=== PATIENT | female | born 1995 | race Caucasian/White ===

== ENCOUNTER 2017-10-08 08:09 | Day surgery (SDC) | payer OTHER ==
--- NOTE | 2017-10-08 08:39 | PDOC.EVN ---
Event Note - Event Note Event Note: OBGYN Note Phone call with ED Physician at 0825 Reason for call: 29 weeks OB, multip, with known siezures. States "siezures" with each . Her primary OBGYN has recommended neurology eval ([place], [place]) for suspected epilepsy. Here for "siezure". No CTX, no VB, no LOF. Was seen at the [facility] recently for "pelvic pain" with negative workup and sent home from there recently. She just arrived in ED. I have not yet seen her as she is being cleared by ED first. I have reqquested nerology consult. As she has a known SZ HX, imaging of head not needed as not acute problem...unless neurology recommends it. Recommended UTox from ED physician. Recommended OB trinity for date check. After cleared there, may bring up for NST. Likely needs AED med initiateion. Await neurology input.
[2017-10-08] MEDS ORDERED: levETIRAcetam 500 MG TAB PO SCH (08:45)
--- NOTE | 2017-10-08 08:52 | PDOC.EVN ---
Event Note - Event Note Event Note: OBGYN Per ED physician, the neurologist has stated that this is a chronic condition by HX and does not require ED eval by neurology. Truman (spelling?) (Neurology) has recommended starting Keppra at 500mg po BID. We will bring up to L&D after OB trinity done
[2017-10-08 09:03] LABS: #Eosinphils 0.1 thou/uL (0.0-0.7); #Lymphocytes 1.9 thou/uL (1.20-3.40); #Monocytes 0.8 thou/uL (0.11-0.59); #Neutrophils 4.5 thou/uL (1.40-6.50); %Basophils 0.6 % (0.0-1.0); %Eosinophils 1.8 % (0.0-10.0); %Lymphocytes 26.1 % (21.0-51.0); %Monocytes 10.5 % (0.0-10.0); Hemoglobin 11.2 g/dL (12.0-16.0); Mean Corpuscular HGB CONC 34.6 g/dL (32.0-36.0); Mean Corpuscular Hemoglobin 32.4 pg (27.0-31.0); Mean Corpuscular Volume 93.8 fL (78.0-98.0); Mean Platelet Volume 7.5 fL (7.4-10.4); Platelet Count 214 thou/uL (130-400); RBC Distribution Width 11.1 % (11.5-14.5); Red Blood Cell (RBC) Count 3.45 mill/uL (4.20-5.40); White Blood Cell (WBC) Count 7.4 thou/uL (4.8-10.8)
[2017-10-08 09:10] LABS: Bilirubin Negative (Negative); Blood, Urine Negative (Negative); Clarity CLEAR (Clear); Glucose, Urine (Dipstick) Negative (Negative); Leukocyte Negative (Negative); Nitrite Negative (Negative); Protein, Urine (Dipstick) Negative (Neg-Trace)
[2017-10-08] MEDS ORDERED: Ondansetron HCl/PF 4 MG/2 ML Vial IVP PRN (10:49)
--- NOTE | 2017-10-08 10:58 | PDOC.EVN ---
Event Note - Event Note Event Note: OBGYN @1055: HISTORY AND PHYSICAL Full handwritten H&P in chart. Please see that note L&D Triage APU1 EGA: 28 weeks 2 days EDC: 12/28/17 CC: here for seizure this AM. OBGYN in [place] recommended Neurology 22 yo ... HPI: In brief, patient here s/p known seizures, GDM HX. Neurology is aware of patient and recommended Keppra start at 500mg po BID. Needs OBGYN in area. Was being seen in [place], [place]. No evidence contractions, VB, or LOF Past medical HX: asthma as child, HX depression- not on meds Allergies: none OB HX: first was at 36 weeks, second at term Surgeries: Foot surgery for foreign body PHYSICAL: VSSAFEB BP normal at 110s/70s NAD A&O Not postictal Abd soft, [place] No VB monitors: reactive for EGA, no contractions CBC normal in ED CMP pending Amassment and plan: Please see handwritten note in chart: Seizures, not medicated. Neurology recommends Keppra 500mg po BID Needs OBGYN referral ([facility]) CMP ordered Asthma- no acute needs Depression- no acute needs
[2017-10-08 11:13] LABS: ALT (SGPT) 8 U/L (8-55); AST (SGOT) 23 U/L (5-34); Albumin 2.8 g/dL (3.5-5.0); Alkaline Phosphatase 68 U/L (40-150); Anion Gap 13 mmol/L (10-20); BUN (Urea Nitrogen) 7 mg/dL (7.0-18.7); Bilirubin, Total 0.2 mg/dL (0.2-1.2); Calc. Creatinine Clearance 0 mL/min (70-130); Carbon Dioxide 16 mmol/L (22-29); Chloride 108 mmol/L (98-107); Estimated GFR-MDRD Greater than 90; Globulin 3.1 g/dL (2.4-3.5); Glucose 66 mg/dL (70-105); Potassium 4.1 mmol/L (3.5-5.1); Protein, Total 5.9 g/dL (6.0-8.3); Sodium 133 mmol/L (136-145)
[2017-10-08 11:33] VITALS: BMI 23.7
--- NOTE | 2017-10-08 11:44 | ULT ---
OB ULTRASOUND: 10/08/2017 HISTORY: A 29 week . Abdominal pain. Seizure. COMPARISON: None available. FINDINGS: There is a single intrauterine gestation in a cephalic presentation. Cardiac Doppler demonstrates fe rocco heart tones with a heart rate of 147 beats per minute. The placenta is located anteriorly without evidence of placenta previa. There is shadowing in the region of the cervix, which limits ad equate evaluation. However, the cervix measures at least approximately 3.3 cm, based on transabdomin al imaging. There is a normal amount of amniotic fluid, with an amniotic fluid index of 14.6 cm. MEASUREMENTS: Biparietal diameter: 7.62 cm (30 weeks 4 days) Head circumference: 29.93 cm (31 weeks 6 days) Abdominal circumference: 25.58 cm (29 weeks 5 days) Femur length: 5.48 cm (29 weeks) ESTIMATED GESTATIONAL AGE BY ULTRASOUND: 30 weeks 4 days. JOSEPH: 12/13/2017 GESTATIONAL AGE BY LAST MENSTRUAL PERIOD: 28 weeks 3 days. ESTIMATED WEIGHT BY ULTRASOUND: 1448 g (3 lbs 3 oz). This represents the 85th percentile for weight. The cerebellum, the visualized portions of the spine, the four chambered heart, the stomach, th e bilateral kidneys, the urinary bladder, the cord insertion, and the three vessel cord are visualize d and have a normal sonographic appearance. No definite anomalies are visualized. IMPRESSION: 1. Single intrauterine gestation, in cephalic presentation, with heart tones documented. Gest ational age by ultrasound is 30 weeks 4 days with an estimated date of delivery of 12/23/2017. 2. Estimated weight by ultrasound is 1448 g (3 lbs 3 oz). 3. Amniotic fluid index measures 14.6 cm. POS: [facility]
--- NOTE | 2017-10-08 11:58 | PDOC.EVN ---
Event Note - Event Note Event Note: CMP ok I have seen the patient at bedside and discussed [place] with her. Need for neurology and OB outpatient follow up reviewed with her.
[2017-10-08] MEDS ORDERED: Ondansetron HCl/PF 4 MG/2 ML Vial ONE (12:00)
--- NOTE | 2017-10-08 12:10 | PDOC.EVN ---
Event Note - Event Note Event Note: Tylenol just ordered for headache. Sxs likely from the recent seizure activity. BPs normotensive
[2017-10-08] MEDS ORDERED: Acetaminophen 500 MG TAB PO SCH (12:15)
== END 2017-10-08 13:20 | disposition home or self-care (01) ==
LOC: ERS 08:09 → SDC 09:54 → ER/OP 13:20
PROVIDERS: ATTEND Obstetrics & Gynecology
DX: O99.353 Diseases of the nervous system complicating pregnancy, third trimester (principal); O99.513 Diseases of the respiratory system complicating pregnancy, third trimester; O99.343 Other mental disorders complicating pregnancy, third trimester; O24.419 Gestational diabetes mellitus in pregnancy, unspecified control; F32.9 Major depressive disorder, single episode, unspecified; J45.909 Unspecified asthma, uncomplicated; Z3A.28 28 weeks gestation of pregnancy
CPT/HCPCS: 36415; 76805; 80053; 81003; 85025; 96360; J2405

== ENCOUNTER 2017-10-11 00:37 | Emergency (ER) | payer OTHER ==
[2017-10-11] MEDS ORDERED: levETIRAcetam In NaCl (Iso-Os) 1,000 MG in Premix Bag 1 BAG IVPB SCH (01:00)
[2017-10-11 01:28] LABS: #Basophils 0.1 thou/uL (0.0-0.2); #Eosinphils 0.1 thou/uL (0.0-0.7); #Lymphocytes 1.9 thou/uL (1.20-3.40); #Monocytes 0.9 thou/uL (0.11-0.59); #Neutrophils 8.5 thou/uL (1.40-6.50); %Basophils 0.4 % (0.0-1.0); %Eosinophils 0.6 % (0.0-10.0); %Lymphocytes 16.5 % (21.0-51.0); %Monocytes 7.7 % (0.0-10.0); %Neutrophils 74.7 % (42.0-75.0); Hemoglobin 10.5 g/dL (12.0-16.0); Mean Corpuscular HGB CONC 35.1 g/dL (32.0-36.0); Mean Corpuscular Hemoglobin 32.8 pg (27.0-31.0); Mean Corpuscular Volume 93.4 fL (78.0-98.0); Mean Platelet Volume 7.6 fL (7.4-10.4); Platelet Count 214 thou/uL (130-400); RBC Distribution Width 11.3 % (11.5-14.5); Red Blood Cell (RBC) Count 3.22 mill/uL (4.20-5.40); White Blood Cell (WBC) Count 11.4 thou/uL (4.8-10.8)
[2017-10-11 01:48] LABS: ALT (SGPT) 7 U/L (8-55); AST (SGOT) 11 U/L (5-34); Alkaline Phosphatase 55 U/L (40-150); Anion Gap 12 mmol/L (10-20); BUN (Urea Nitrogen) 6 mg/dL (7.0-18.7); Bilirubin, Total 0.3 mg/dL (0.2-1.2); Calc. Creatinine Clearance 0 mL/min (70-130); Calcium 7.8 mg/dL (7.8-10.44); Carbon Dioxide 19 mmol/L (22-29); Chloride 109 mmol/L (98-107); Estimated GFR-MDRD Greater than 90; Globulin 2.7 g/dL (2.4-3.5); Glucose 72 mg/dL (70-105); Potassium 3.5 mmol/L (3.5-5.1); Protein, Total 5.7 g/dL (6.0-8.3); Sodium 136 mmol/L (136-145)
[2017-10-11 02:05] LABS: Bilirubin Negative (Negative); Blood, Urine Negative (Negative); Clarity CLEAR (Clear); Glucose, Urine (Dipstick) Negative (Negative); Leukocyte Negative (Negative); Nitrite Negative (Negative); Protein, Urine (Dipstick) Negative (Neg-Trace); Specific Gravity, Urine 1.026 (1.002-1.036); pH, Urine 6.5 (5.0-9.0)
[2017-10-11] MEDS ORDERED: Mag-Al 1200 mg/1200 mg/30 ML UDCUP ONE (02:50)
== END 2017-10-11 03:28 | disposition home or self-care (01) ==
LOC: ERS 00:37
DX: O99.353 Diseases of the nervous system complicating pregnancy, third trimester (principal); G40.909 Epilepsy, unspecified, not intractable, without status epilepticus; O24.419 Gestational diabetes mellitus in pregnancy, unspecified control; O99.333 Smoking (tobacco) complicating pregnancy, third trimester; F17.210 Nicotine dependence, cigarettes, uncomplicated; O99.343 Other mental disorders complicating pregnancy, third trimester; F41.9 Anxiety disorder, unspecified; Z3A.29 29 weeks gestation of pregnancy; Z79.899 Other long term (current) drug therapy; Z91.14 Patient's other noncompliance with medication regimen
CPT/HCPCS: 36415; 59025; 80053; 81003; 85025; 96365; J1953

== ENCOUNTER 2017-10-28 18:40 | Emergency (ER) | payer OTHER ==
[2017-10-28 19:26] LABS: Bilirubin Small (Negative); Blood, Urine Negative (Negative); Clarity CLEAR (Clear); Glucose, Urine (Dipstick) Negative (Negative); Leukocyte Small (Negative); Nitrite Negative (Negative); Protein, Urine (Dipstick) Trace mg/dL (Neg-Trace); Specific Gravity, Urine 1.027 (1.002-1.036)
[2017-10-28 19:28] LABS: Bacteria/HPF 1+ HPF (None Seen); Hyaline Casts/LPF 0-3 HYALINE CAST LPF (0-3 Hyaline); Pathc Cast-AUWi Flag 0.43 (0-2.49); RBC/HPF 0-3 HPF (0-3)
[2017-10-28 19:37] LABS: ALT (SGPT) 11 U/L (8-55); AST (SGOT) 16 U/L (5-34); Albumin 3.4 g/dL (3.5-5.0); Alkaline Phosphatase 88 U/L (40-150); Anion Gap 13 mmol/L (10-20); BUN (Urea Nitrogen) 9 mg/dL (7.0-18.7); Bilirubin, Total 0.3 mg/dL (0.2-1.2); Calc. Creatinine Clearance 0 mL/min (70-130); Calcium 8.6 mg/dL (7.8-10.44); Carbon Dioxide 20 mmol/L (22-29); Chloride 106 mmol/L (98-107); Estimated GFR-MDRD Greater than 90; Globulin 3.1 g/dL (2.4-3.5); Glucose 82 mg/dL (70-105); Potassium 3.5 mmol/L (3.5-5.1); Protein, Total 6.5 g/dL (6.0-8.3); Sodium 135 mmol/L (136-145)
[2017-10-28 19:56] LABS: #Eosinphils 0.1 thou/uL (0.0-0.7); #Lymphocytes 1.8 thou/uL (1.20-3.40); #Monocytes 0.7 thou/uL (0.11-0.59); #Neutrophils 4.6 thou/uL (1.40-6.50); %Basophils 0.3 % (0.0-1.0); %Lymphocytes 24.6 % (21.0-51.0); %Monocytes 9.4 % (0.0-10.0); %Neutrophils 64.7 % (42.0-75.0); Hemoglobin 11.5 g/dL (12.0-16.0); Mean Corpuscular HGB CONC 35.4 g/dL (32.0-36.0); Mean Corpuscular Hemoglobin 32.1 pg (27.0-31.0); Mean Corpuscular Volume 90.8 fL (78.0-98.0); Mean Platelet Volume 7.6 fL (7.4-10.4); Platelet Count 246 thou/uL (130-400); RBC Distribution Width 11.4 % (11.5-14.5); Red Blood Cell (RBC) Count 3.59 mill/uL (4.20-5.40); White Blood Cell (WBC) Count 7.2 thou/uL (4.8-10.8)
[2017-10-28] MEDS ORDERED: Ondansetron HCl/PF 4 MG/2 ML Vial ONE (20:02)
[2017-10-28] MEDS ORDERED: Mag-Al 1200 mg/1200 mg/30 ML UDCUP ONE (20:45)
== END 2017-10-28 20:54 | disposition home or self-care (01) ==
LOC: ERS 18:40
DX: O99.89 Other specified diseases and conditions complicating pregnancy, childbirth and the puerperium (principal); R56.9 Unspecified convulsions; O99.333 Smoking (tobacco) complicating pregnancy, third trimester; F17.210 Nicotine dependence, cigarettes, uncomplicated; Z79.899 Other long term (current) drug therapy; Z3A.31 31 weeks gestation of pregnancy
CPT/HCPCS: 80053; 81003; 81015; 84146; 85025; 87086; 96374; J2405

== ENCOUNTER 2017-10-30 22:36 | Day surgery (SDC) | payer OTHER ==
[2017-10-30 22:59] VITALS: BMI 24.4
[2017-10-30] MEDS ORDERED: Mineral Oil ENEMA PR SCH (23:45)
[2017-10-30] MEDS ORDERED: Fleet Enema 133 ML BOT PR SCH (23:45)
[2017-10-31] MEDS ORDERED: Ondansetron ODT 8 MG TAB SL PRN (00:17)
[2017-10-31 00:52] LABS: Bilirubin Negative (Negative); Blood, Urine Negative (Negative); Clarity CLEAR (Clear); Glucose, Urine (Dipstick) Negative (Negative); Leukocyte Negative (Negative); Nitrite Negative (Negative); Protein, Urine (Dipstick) Negative (Neg-Trace); Specific Gravity, Urine 1.023 (1.002-1.036)
[2017-10-31 00:55] LABS: Bacteria/HPF None Seen HPF (None Seen); Hyaline Casts/LPF 0-3 HYALINE CAST LPF (0-3 Hyaline); Pathc Cast-AUWi Flag 0.43 (0-2.49); RBC/HPF 0-3 HPF (0-3); Squamous Epithelial 0-3 HPF (0-3); WBC/HPF 0-3 HPF (0-3)
--- NOTE | 2017-10-31 06:41 | PRG ---
DATE OF SERVICE: 10/30/2017 PRIMARY OB: Out of town. CHIEF COMPLAINT: Pelvic pressure. HISTORY OF PRESENT ILLNESS: The patient is a 22-year-old G3, P2 female with an intrauterine pregnanc y at 31 weeks and 5 days who is presenting to Labor and Delivery with a 1 day history of pelvic press ure. The patient reports that she has pain with movement and activity. She reports she had intercou rse earlier this morning prior to onset of symptoms. She denies any vaginal bleeding, though reports that she has had a couple episodes of some clear thick discharge. The patient reports that she has been having nausea and vomiting with this , bad heartburn. She also reports constipation wi th her last bowel movement about 2 weeks ago. The patient also reports urinary urgency and frequency . The patient does have a history of a . Upon further questioning, the was induc ed at 34 weeks for preeclampsia with severe features. The patient denies fever, headache, chest pain . She does have some shortness of breath at baseline with this . Reports some nausea and v omiting with this and bad heartburn. She denies diarrhea or constipation. Denies any new rashes. Denies hip problems or knee problems or muscle weakness. Denies vaginal bleeding, reports a n increased discharge today and reports urinary urgency and frequency. PAST MEDICAL HISTORY: Recently is an unknown seizure disorder of unknown etiology, gestational diabe mario, anxiety, a history of asthma as a child. PAST SURGICAL HISTORY: The patient had a foot surgery. ALLERGIES: No known drug allergies. CURRENT MEDICATIONS: The patient reports she takes Keppra 1000 mg twice a day, vitamins, Bu Spar, Zofran, folic acid, metformin 500 mg twice a day and iron. SOCIAL HISTORY: Denies drug, alcohol or tobacco use. OB LABS: Unavailable at time of dictation. REVIEW OF SYSTEMS: The patient denies fever or fall. She does report headaches at times. Reports b aseline shortness of breath. Review of systems per HPI. PHYSICAL EXAMINATION: VITAL SIGNS: Blood pressure 105/56, heart rate of 85, respiratory rate of 18, temperature 98.2. GENERAL: She appears to be in no acute distress. She is alert and oriented, cooperative and pleasan t to interact with. HEENT: Head is normocephalic, atraumatic. CHEST: Clear to auscultation bilaterally. HEART: Regular rate and rhythm. ABDOMEN: Soft, gravid. She does have some tenderness with deviation of the uterus on the left side more than the right. She also has some lower pelvic tenderness to palpation. EXTREMITIES: Nontender, nonedematous. PELVIC: Vulva is without mass lesions or erythema. Vagina is moist without any discharge. Cervix i s visibly closed. On digital exam, her cervix is long and closed. Of note, she did have a lot of te nderness to palpation of the labia and vaginal ledbetter consistent with her chief complaint. heart tracing performed for pelvic pressure with NST, baseline is noted to be in the 140s with moderate long-term variability, positive 15 x 15 accelerations, no decelerations. There is some irri tability seen on the monitor, but not felt by the patient. A urinalysis was performed which was negative for protein, glucose, for ketones, for blood, for nitri mario or leukocyte esterase or bacteria. During her stay, the patient was given a soapsuds enema which helped her to have a bowel movement. Afterwards the patient reports she felt a lot better and that pressure in her pelvis is much improved. ASSESSMENT AND PLAN: The patient is a 22-year-old female with an intrauterine at 31 weeks and 5 days, followed by outside provider in [place], [place], who presented for pelvic pressure. The pa tient has a chronic problem with constipation and symptoms improved after having an enema induced bow el movement here in the Labor and Delivery. The patient also has some musculoskeletal pains that may be contributing to her discomfort. There is no evidence of labor. Fetus has a category 1 tracing a nd reactive NST. There is no evidence of urinary tract infection.
== END 2017-10-31 01:30 | disposition home or self-care (01) ==
LOC: L&D/OP 22:36
PROVIDERS: ATTEND Obstetrics & Gynecology
DX: O99.89 Other specified diseases and conditions complicating pregnancy, childbirth and the puerperium (principal); R10.2 Pelvic and perineal pain; Z79.84 Long term (current) use of oral hypoglycemic drugs; Z79.899 Other long term (current) drug therapy; Z3A.31 31 weeks gestation of pregnancy
CPT/HCPCS: 81001; 99283

== ENCOUNTER 2018-01-10 22:46 | Emergency (ER) | payer OTHER ==
--- NOTE | 2018-01-11 | RAD ---
PORTABLE UPRIGHT FRONTAL CHEST RADIOGRAPH 01/10/18 COMPARISON: None. HISTORY: Seizure. FINDINGS: Lungs are clear. Heart and mediastinal contours appear grossly unremarkable. IMPRESSION: No acute findings. POS: [facility]
[2018-01-11 00:02] LABS: #Basophils 0.1 thou/uL (0.0-0.2); #Eosinphils 0.4 thou/uL (0.0-0.7); #Lymphocytes 2.6 thou/uL (1.20-3.40); #Monocytes 0.4 thou/uL (0.11-0.59); #Neutrophils 2.4 thou/uL (1.40-6.50); %Basophils 1.1 % (0.0-1.0); %Eosinophils 7.2 % (0.0-10.0); %Lymphocytes 44.2 % (21.0-51.0); %Monocytes 6.7 % (0.0-10.0); %Neutrophils 40.9 % (42.0-75.0); Hemoglobin 12.8 g/dL (12.0-16.0); Mean Corpuscular HGB CONC 33.4 g/dL (32.0-36.0); Mean Corpuscular Hemoglobin 29.3 pg (27.0-31.0); Mean Corpuscular Volume 87.9 fL (78.0-98.0); Mean Platelet Volume 7.5 fL (7.4-10.4); Platelet Count 344 thou/uL (130-400); RBC Distribution Width 13.1 % (11.5-14.5); Red Blood Cell (RBC) Count 4.38 mill/uL (4.20-5.40); White Blood Cell (WBC) Count 5.9 thou/uL (4.8-10.8)
[2018-01-11 00:24] LABS: ALT (SGPT) 14 U/L (8-55); AST (SGOT) 26 U/L (5-34); Albumin 3.9 g/dL (3.5-5.0); Alkaline Phosphatase 83 U/L (40-150); Anion Gap 16 mmol/L (10-20); BUN (Urea Nitrogen) 10 mg/dL (7.0-18.7); Bilirubin, Total Less than 0.2 mg/dL (0.2-1.2); CK (CPK) 373 U/L (29-168); Calc. Creatinine Clearance 0 mL/min (70-130); Calcium 9.5 mg/dL (7.8-10.44); Carbon Dioxide 20 mmol/L (22-29); Chloride 111 mmol/L (98-107); Estimated GFR-MDRD Greater than 90; Globulin 3.5 g/dL (2.4-3.5); Glucose 83 mg/dL (70-105); Potassium 3.8 mmol/L (3.5-5.1); Protein, Total 7.4 g/dL (6.0-8.3); Sodium 143 mmol/L (136-145)
[2018-01-11 00:29] LABS: Bilirubin Negative (Negative); Blood, Urine Negative (Negative); Clarity CLEAR (Clear); Glucose, Urine (Dipstick) Negative (Negative); Leukocyte Negative (Negative); Nitrite Negative (Negative); Protein, Urine (Dipstick) Negative (Neg-Trace); Urobilinogen 0.2 mg/dL (0.2-1.0); pH, Urine 6.5 (5.0-9.0)
[2018-01-11] MEDS ORDERED: levETIRAcetam 500 MG TAB PO SCH (00:30)
[2018-01-11 00:31] LABS: Acetaminophen Less than 6.0 mcg/mL (10.0-30.0); Alcohol 164 mg/dL (Less than 10); Magnesium 2.6 mg/dL (1.6-2.6); Salicylate Less than 8.0 mg/dL (15.0-30.0)
[2018-01-11 00:36] LABS: Specific Gravity, Urine 1.002 (1.002-1.036)
[2018-01-11 00:51] LABS: Amphetamine Not Detected (NotDetected); Barbiturates Screen Not Detected (NotDetected); Benzodiazepine Screen Not Detected (NotDetected); Cocaine Metabolite Screen Not Detected (NotDetected); Medtox Reader # READER 4; Methadone Not Detected (NotDetected); Methamphetamine Not Detected (NotDetected); Opiate Screen Not Detected (NotDetected); Oxycodone Screen Not Detected (NotDetected); Phencyclidine (PCP) Not Detected (NotDetected); THC/Cannabinoid Screen Not Detected (NotDetected); Tricyclic Screen Not Detected (NotDetected)
[2018-01-11 00:52] LABS: Medtox Control Line Valid? VALID (VALID)
== END 2018-01-11 01:14 | disposition home or self-care (01) ==
LOC: ERS 22:46
DX: R56.9 Unspecified convulsions (principal); F10.129 Alcohol abuse with intoxication, unspecified; F41.9 Anxiety disorder, unspecified; F17.210 Nicotine dependence, cigarettes, uncomplicated; Z79.899 Other long term (current) drug therapy
CPT/HCPCS: 36415; 71045; 80053; 80306; 80307; 81003; 82550; 83605; 83735; 85025; 93005

== ENCOUNTER 2018-08-05 18:10 | Day surgery (SDC) | payer OTHER ==
[2018-08-05 18:51] VITALS: BP 108/57; TEMP 98.6; BMI 24.7
[2018-08-05 19:39] LABS: Bilirubin Negative (Negative); Blood, Urine Small (Negative); Clarity CLEAR (Clear); Glucose, Urine (Dipstick) Negative (Negative); Leukocyte Negative (Negative); Nitrite Negative (Negative); Protein, Urine (Dipstick) Negative (Neg-Trace); Specific Gravity, Urine 1.012 (1.002-1.036)
[2018-08-05 19:41] LABS: Bacteria/HPF None Seen HPF (None Seen); Hyaline Casts/LPF 0-3 HYALINE CAST LPF (0-3 Hyaline); Pathc Cast-AUWi Flag 0.54 (0-2.49); Squamous Epithelial 0-3 HPF (0-3); WBC/HPF None Seen HPF (0-3)
--- NOTE | 2018-08-06 02:41 | SS ---
DATE OF ADMISSION: 08/05/2018 DATE OF DISCHARGE: 08/05/2018 EVALUATING PHYSICIAN: Mickey Prabhakar MD CHIEF COMPLAINT: Transfer from [facility]. HISTORY OF PRESENT ILLNESS: Ms. Del Toro is a 23-year-old white, G4, P3-0-0-3 with an unknown estimated date of confinement, who presented to [facility] this evening complaining of spotting since last evening and suspected uterine contraction. She denies ruptured membranes. She was evaluated at [facility], was told her cervix was closed and she had an ultrasound there, consistent with 27 weeks. She was transferred here for further evaluation. PAST OBSTETRICAL HISTORY: Includes three vaginal deliveries, all at term. PAST MEDICAL HISTORY: Includes seizure disorder, the last was several weeks ago. PAST SURGICAL HISTORY: None. CURRENT MEDICATIONS: Keppra 1000 mg b.i.d. ALLERGIES: NO KNOWN ALLERGIES. SOCIAL HISTORY: Denies tobacco, alcohol, or drug use. FAMILY HISTORY: Unremarkable. REVIEW OF SYSTEMS: She denies nausea, vomiting, fever, chills, ruptured membranes, or decreased movement. PHYSICAL EXAMINATION: VITAL SIGNS: In triage, blood pressure 108/57 and pulse 86. GENERAL: She is in no acute distress. ABDOMEN: Soft and nontender. PELVIS: Shows the cervix to be closed. There is no blood in the vault. LABORATORY DATA: Laboratories done at [facility]; white count 7.6, hemoglobin and hematocrit are 12.0 and 36.8, and platelet count is 277,000. Chemistry shows sodium of 136, potassium of 3.8, and a creatinine of 0.5. The total bilirubin is 0.2, and AST and ALT of 16 and 15 respectively. Blood type is A positive. Ultrasound done at [facility] shows biometry consistent with 27 weeks. There is no previa or low-lying placenta seen. The fetus is vertex, and the RAFAEL is 8.9. Laboratory done here tonight is urinalysis, which shows a specific gravity of 1.012. Her urine is clear and yellow, negative for protein, negative for glucose, negative for ketones, with only a small amount of blood with negative nitrites. Negative leukocyte esterase. Microscopic shows 4 to 6 rbc's, no wbc's, 0 to 3 epithelials, and no bacteria. Vaginitis screen is negative for Apoorva Gardnerella or Trichomonas. ASSESSMENT: 1. Twenty-seven and one week intrauterine with no care thus far. 2. No evidence of labor. PLAN: The patient will be discharged to home. The patient states that she has an appointment at [facility] in the morning to initiate care there. She was given complete precautions. Job ID: [id number]
== END 2018-08-05 21:50 | disposition home or self-care (01) ==
LOC: L&D/OP 18:10
PROVIDERS: ATTEND Family Medicine
DX: O26.852 Spotting complicating pregnancy, second trimester (principal); O99.352 Diseases of the nervous system complicating pregnancy, second trimester; G40.909 Epilepsy, unspecified, not intractable, without status epilepticus; Z3A.27 27 weeks gestation of pregnancy; Z79.899 Other long term (current) drug therapy
CPT/HCPCS: 81003; 81015; 87480; 87510; 87660; A4353

== ENCOUNTER 2018-08-26 18:41 | Day surgery (SDC) | payer OTHER ==
[2018-08-26 19:14] VITALS: BP 97/53; TEMP 98.4; BMI 26.4
[2018-08-26] MEDS: Lactated Ringer's 1,000 ML IV SCH ×2 (20:01→21:16)
[2018-08-26] MEDS: diphenhydrAMINE 50 MG/ML VIAL IVP PRN ×2 (20:01→21:14)
[2018-08-26] MEDS: Metoclopramide HCl 10 MG/2 ML VIAL IVP PRN ×4 (20:04→21:53)
--- NOTE | 2018-08-26 23:35 | PRG ---
DATE OF SERVICE: 08/26/2018 PRIMARY OB: Aj Waite MD CHIEF COMPLAINT: Headache. HISTORY OF PRESENT ILLNESS: The patient is a 23-year-old G4, P3, female with an intrauterine at 35 weeks' gestation, who was followed by Dr. Aj Waite. The patient reports that she has had a severe headache all day long today that has not resolved with 4 doses of Tylenol. The patient reports that she is having nausea, extreme light sensitivity, and vomited down in the emergency room. She denies any prior history of headache like this. The patient does have a history of seizures with her last seizure being about a month ago. The patient denies any recent illness, fever, fall, chest pain, shortness of breath, diarrhea, constipation, hip problems, knee problems, muscle weakness, vaginal bleeding, leakage of fluid, and urinary urgency or frequency. PAST MEDICAL HISTORY: Seizure disorder. PAST SURGICAL HISTORY: None. CURRENT MEDICATIONS: Keppra 1000 mg b.i.d. ALLERGIES: NO KNOWN DRUG ALLERGIES. SOCIAL HISTORY: The patient reports tobacco use, 1 pack per week. Denies alcohol or drug use. REVIEW OF SYSTEMS: Per HPI. OB LABS: Unavailable at the time of dictation. PHYSICAL EXAMINATION: VITAL SIGNS: Blood pressure is 108/57, heart rate of 86, respiratory rate of 16, saturating 99% on room air, and temperature 98.8. GENERAL: On initial exam, the patient is hiding under the blanket, staying away from the light. She is alert, oriented, cooperative, and pleasant to interact with. HEENT: Head is normocephalic, atraumatic. LUNGS: Clear to auscultation bilaterally. HEART: Has regular rate and rhythm. ABDOMEN: Gravid and soft. EXTREMITIES: Nontender, nonedematous. heart tracing performed and noted to have a baseline in the 130s with moderate long-term variability, positive accelerations, 15 x 15 accelerations, no decelerations. Tocometer showing no contractions. After 3 doses of Reglan q.30 minutes, 10 mg p.o. q.30 minutes x3 and 2 doses of Benadryl q.1 hour 25 mg x2, the patient reports her headache has come to zero. She has also been given 1.5 L of IV fluids. ASSESSMENT AND PLAN: The patient is a 23-year-old G4, P3, female with an intrauterine at 31 weeks and 5 days, who has been diagnosed with migraine headache, resolved with Reglan and Benadryl and IV fluids. The patient reports that she is feeling much better and apart from being sleepy. She is happy with the results and will be discharged to home. Her fetus has a reactive NST and category 1 tracing. The patient has an appointment on for anatomy scan. Job ID: [id number]
== END 2018-08-26 22:05 | disposition home or self-care (01) ==
LOC: L&D/OP 18:41
PROVIDERS: ATTEND Family Medicine
DX: O99.353 Diseases of the nervous system complicating pregnancy, third trimester (principal); G43.909 Migraine, unspecified, not intractable, without status migrainosus; G40.909 Epilepsy, unspecified, not intractable, without status epilepticus; O99.333 Smoking (tobacco) complicating pregnancy, third trimester; F17.290 Nicotine dependence, other tobacco product, uncomplicated; Z3A.31 31 weeks gestation of pregnancy; Z79.899 Other long term (current) drug therapy
CPT/HCPCS: 96360; 96361; 96375; 99282; J1200; J2765

== ENCOUNTER 2018-08-28 07:06 | Outpatient (CLI) | payer OTHER ==
--- NOTE | 2018-08-28 08:12 | ULT ---
EXAM: OB ultrasound COMPARISON: None HISTORY: female. Evaluate size, dates, and anatomy. TECHNIQUE: Multiplanar grayscale and color Doppler transabdominal sonographic images are obtained. FINDINGS: There is a single intrauterine gestation in cephalic presentation. Cardiac Doppler demonstr ates heart tones with a heart rate of 135 beats per minute. The placenta is located anteriorly and to the maternal left without evidence of placenta previa. Amniotic fluid index is at t he lower limits of normal measuring 8.09 cm. The cervical length based on transabdominal imaging measures 3.3 centimeters. biometry measurements: BPD 7.74 cm -- 31 weeks 1 day HC 28.55 cm -- 31 weeks 3 days AC 26.92 cm -- 31 weeks 1 day FL 5.69 cm -- 29 weeks 6 days The estimated gestational age by ultrasound is 31 weeks with an JOSEPH on10/30/2018. Gestational age by t he last menstrual period is 10/30/2018. The estimated weight by ultrasound is 1620 g (3 pounds, 9 ounces). This represents 28 percentil e for weight. A 4 chambered heart is visualized. The cerebellum, visualized portions of the spine, kidneys, a nd urinary bladder demonstrate a normal sonographic appearance. Cord insertion is not well seen due to positioning. Three-vessel cord is visualized. No anomalies are seen. IMPRESSION: 1. Single intrauterine gestation in cephalic presentation with heart tones documented. Estimat ed gestational age by ultrasound is 31 weeks with JOSEPH on 10/30/2018. 2. Estimated weight is 1620 g (3 pounds, 9 ounces). 3. Amniotic fluid index is diminished and at the lower limits of normal measuring 8.09 cm.
== END 2018-08-28 07:07 | disposition home or self-care (01) ==
LOC: BICULT 07:06
PROVIDERS: ATTEND Family Medicine
DX: O09.893 Supervision of other high risk pregnancies, third trimester (principal); Z3A.31 31 weeks gestation of pregnancy
CPT/HCPCS: 76805

== ENCOUNTER 2018-09-21 21:27 | Day surgery (SDC) | payer OTHER ==
[2018-09-21 21:53] VITALS: BP 106/63; TEMP 98.3; BMI 25.4
--- NOTE | 2018-09-22 02:21 | SS ---
DATE OF ADMISSION: 09/21/2018 DATE OF DISCHARGE: 09/22/2018 REGULAR PHYSICIAN: Aj Waite MD. EVALUATING PHYSICIAN: Mickey Prabhakar MD CHIEF COMPLAINT: Fall at home. HISTORY OF PRESENT ILLNESS: Ms. Del Toro is a 23-year-old white G4, P3, with an estimated date of confinement of 10/30/2018, who presents complaining of fall at home, where she slipped in the shower and fell back onto her bottom. She denies direct abdominal contact. She denies vaginal bleeding or ruptured membranes since the event. She states that it occurred at approximately 8:30 pm. Her care has been with Dr. Waite and has been reportedly uncomplicated. PAST MEDICAL HISTORY: Seizure disorder. PAST SURGICAL HISTORY: None. CURRENT MEDICATIONS: vitamins and Keppra 1000 mg b.i.d. ALLERGIES: NO KNOWN ALLERGIES. SOCIAL HISTORY: Denies tobacco, alcohol, or drug use. FAMILY HISTORY: Unremarkable. REVIEW OF SYSTEMS: Denies nausea, vomiting, fever, chills, ruptured membranes, or vaginal bleeding. PHYSICAL EXAMINATION: VITAL SIGNS: Stable and she is afebrile. GENERAL: She is in no acute distress. ABDOMEN: Soft, nontender, and gravid. There is no guarding or rebound. PELVIC: Deferred. heart rate tracing is stable. No uterine contractions are seen. The patient was monitored over approximately 4-hour period of time and there were no evidence of decelerations or contractions. ASSESSMENT: 1. 34-1/2 week intrauterine . 2. Status post fall. 3. No evidence of abruption or distress over her period of observation tonight. PLAN: The patient will be dismissed to home. She was given complete precautions and was told to return to the hospital should she experience contractions, vaginal bleeding, or decreased movement. She voiced understanding of her instructions and she was given a work release, so that she could rest tomorrow rather than going to work. She will follow up for her next scheduled visit with Dr. Waite this week. Job ID: [id number] MTDD
== END 2018-09-22 01:12 | disposition home or self-care (01) ==
LOC: L&D/OP 21:27
PROVIDERS: ATTEND Family Medicine
DX: Z04.3 Encounter for examination and observation following other accident (principal); O99.353 Diseases of the nervous system complicating pregnancy, third trimester; G40.909 Epilepsy, unspecified, not intractable, without status epilepticus; Z3A.34 34 weeks gestation of pregnancy; Z79.899 Other long term (current) drug therapy; W18.2XXA Fall in (into) shower or empty bathtub, initial encounter; Y92.002 Bathroom of unspecified non-institutional (private) residence as the place of occurrence of the external cause
CPT/HCPCS: 99282

== ENCOUNTER 2018-10-02 19:38 | Inpatient (IN) | payer OTHER ==
[2018-10-02 20:17] VITALS: BMI 25.7
--- NOTE | 2018-10-02 20:30 | PDOC.LDHP ---
Labor and Delivery H&P HPI: Patient with known SZ disorder on Keppra 100omg po BID, just seen within last 24 hrs with SZ at home. Patient of Dr Waite Time: 829 Patient is a 23 yo at [address] Waite at [facility], here for CTX every 3-5 minutes. No LOF, no VB, good FM. Was 2cm yesterday in L&D. Review of Systems: pos for SZ HX on meds Current gestational age (weeks): 36 Due date: 10/30/18 Dating criteria: last menstrual period Grav: 4 Para: 3 OB History Details: All SVDs Current complications: other (SZ disorder) Abnormal US findings: No Current medications: pre- vitamins, other (Keppra 1000mg po BID) Allergies/Adverse Reactions: Allergies Allergy/AdvReac Type Severity Reaction Status Date / Time No Known Allergies Allergy Verified 10/01/18 11:38 Social history: none - Physical Exam Vital signs reviewed and normal: yes Abnormal vital signs: Pulse 110-120 General: NAD Heart: RRR Lungs: CTAB Abdomen: gravid Extremeties: no edema FHT: category 1 Mitchell contractions every: every 3-5 - Vaginal Exam cm dilated: 4 Effacement: 50% Station: -1 - Assessment L&D Assessment: labor HX of SZ disorder with recent seizure, on meds, unknown GBS - Plan Plan: admit to L&D, GBS antibiotic prophylaxis (Due to unknown result and EGA), informed consent obtained, other (Order UDS for maternal tachycardia; celestone as under [address] waite to be notified of admission)
[2018-10-02] MEDS ORDERED: Butorphanol Tartrate 1 MG/ML VIAL SLOW IVP PRN (20:33)
[2018-10-02] MEDS ORDERED: Lidocaine 1% (PF) 30 ML VIAL SC PRN (20:33)
[2018-10-02] MEDS ORDERED: HYDROcodone/Acetaminophen 5/325 mg Tablet PO PRN ×2 (20:33)
[2018-10-02] MEDS ORDERED: hydrALAZINE 20 MG/ML VIAL SLOW IVP PRN (20:33)
[2018-10-02] MEDS ORDERED: NS / Oxytocin 40 units/1000ml 1,000 ML IV PRN (20:33)
[2018-10-02] MEDS ORDERED: Ibuprofen 800 MG TAB PO PRN (20:33)
[2018-10-02] MEDS ORDERED: Ondansetron PF 4 MG/2 ML Vial IVP PRN (20:33)
[2018-10-02] MEDS ORDERED: Promethazine HCl 25 MG/ML VIAL IM PRN (20:33)
--- NOTE | 2018-10-02 20:44 | PDOC.EVN ---
Event Note - Event Note Event Note: Cancelled steroids...she has received them already
[2018-10-02] MEDS ORDERED: Penicillin G Potassium 5 MILL.UNITS in Sodium Chloride 0.9% 100 ML IVPB SCH (20:45)
[2018-10-02] MEDS ORDERED: Lactated Ringer's 1,000 ML IV SCH (20:45)
[2018-10-02] MEDS ORDERED: Betamet Acet/Betamet Na Ph 30 MG/5 ML VIAL IM SCH (21:00)
[2018-10-02] MEDS ORDERED: Penicillin G 2.5 MILL.units 2.5 MILL.UNITS in Premix Bag 1 BAG IVPB SCH (21:00)
[2018-10-02] MEDS ORDERED: Azithromycin 500 MG in Sodium Chloride 0.9% 250 ML 250 ML IVPB SCH (21:15)
[2018-10-02] MEDS ORDERED: Ampicillin 2 GM in Sodium Chloride 0.9% 100 ML IVPB SCH (21:15)
[2018-10-02 21:48] LABS: Hemoglobin 10.9 g/dL (12.0-16.0); Mean Corpuscular HGB CONC 34.2 g/dL (32.0-36.0); Mean Corpuscular Hemoglobin 29.5 pg (27.0-31.0); Mean Corpuscular Volume 86.2 fL (78.0-98.0); Mean Platelet Volume 8.5 fL (7.4-10.4); Platelet Count 287 thou/uL (130-400); RBC Distribution Width 12.8 % (11.5-14.5); Red Blood Cell (RBC) Count 3.69 mill/uL (4.20-5.40); White Blood Cell (WBC) Count 15.5 thou/uL (4.8-10.8)
[2018-10-02] MEDS ORDERED: AMPicillin 1 GM in Sodium Chloride 0.9% 100 ML IVPB SCH (22:00)
[2018-10-02 22:13] LABS: Syphilis Antibody Nonreactive (Nonreactive); Syphilis Antibody Index 0.04 S/CO (<1.00 Non-Reactive)
[2018-10-02] MEDS ORDERED: Fentanyl 4 mcg/Bup 0.1% Cadd 100 ML ONE (22:17)
[2018-10-02 22:57] LABS: HBSAg Index 0.26 S/CO (0-0.99); HIV (1/2) Antibody/Antigen Non-Reactive (NonReactive); HIV 1/2 INDEX 0.14 S/CO (<1.00); Hep B Surf Ag Non-Reactive S/CO (NonReactive)
[2018-10-02] MEDS ORDERED: Calcium Carbonate 500 MG ChewTAB PO SCH (23:30)
[2018-10-03] MEDS ORDERED: Naloxone HCl 0.4 mg/ml Vial IVP PRN ×2 (03:12)
[2018-10-03] MEDS ORDERED: Acetaminophen 325 MG TAB PO PRN (03:12)
[2018-10-03] MEDS ORDERED: Lactated Ringer's 500 ML IV PRN (03:12)
[2018-10-03] MEDS ORDERED: Promethazine HCl 25 MG/ML VIAL IM PRN (03:12)
[2018-10-03] MEDS ORDERED: diphenhydrAMINE 50 MG/ML VIAL IVP PRN (03:12)
[2018-10-03] MEDS ORDERED: Ondansetron PF 4 MG/2 ML Vial IVP PRN ×2 (03:12→03:22)
[2018-10-03] MEDS ORDERED: ePHEDrine/0.9% NaCl/PF SYRINGE 50 mg/10 ml SLOW IVP PRN (03:12)
[2018-10-03] MEDS ORDERED: Communication Order-Pharmacy FS SCH (03:15)
[2018-10-03] MEDS ORDERED: Fentanyl 4 mcg/Bupivacaine 0.1% Cassette 100 ML EPIDURAL SCH (03:15)
[2018-10-03] MEDS ORDERED: Lanolin Ointment 7 GM TUBE TOP PRN (03:22)
[2018-10-03] MEDS ORDERED: HYDROcodone/Acetaminophen 5/325 mg Tablet PO PRN (03:22)
[2018-10-03] MEDS ORDERED: NS / Oxytocin 40 units/1000ml 1,000 ML IV SCH (03:22)
[2018-10-03] MEDS ORDERED: Bisacodyl 10 MG SUPP PR PRN (03:22)
[2018-10-03] MEDS ORDERED: diphenhydrAMINE 25 MG CAP PO PRN (03:22)
[2018-10-03] MEDS ORDERED: hydrALAZINE 20 MG/ML VIAL SLOW IVP PRN (03:22)
[2018-10-03] MEDS ORDERED: Milk Of Magnesia 30 ML UDCUP PO PRN (03:22)
[2018-10-03] MEDS: Ibuprofen 800 MG TAB PO SCH ×3 (06:18→22:11)
[2018-10-03] MEDS: HYDROcodone/Acetaminophen 5/325 mg Tablet PO PRN ×3 (07:52→18:21)
[2018-10-03] MEDS: Docusate Calcium (SURFAK) 240 MG CAP PO SCH ×2 (07:52→22:11)
[2018-10-03] MEDS: Prenatal Vitamin 1 TAB PO SCH (07:52)
[2018-10-03] MEDS ORDERED: Adacel (T-DAP) 0.5 ML SYRINGE IM ONE (09:00)
[2018-10-03] MEDS ORDERED: levETIRAcetam 500 MG TAB PO SCH (09:00)
[2018-10-03] MEDS: levETIRAcetam 500 MG TAB PO SCH ×2 (09:17→22:10)
[2018-10-03] MEDS ORDERED: Bupivacaine 0.25% HCL 30 ML VIAL ONE (11:11)
[2018-10-03] MEDS: Ferrous Sulfate 325 MG TAB PO SCH (17:57)
[2018-10-04] MEDS: HYDROcodone/Acetaminophen 5/325 mg Tablet PO PRN ×4 (00:10→14:36)
[2018-10-04] MEDS: Ibuprofen 800 MG TAB PO SCH ×2 (04:36→14:05)
[2018-10-04 06:46] LABS: Hemoglobin 8.9 g/dL (12.0-16.0); Mean Corpuscular HGB CONC 32.6 g/dL (32.0-36.0); Mean Corpuscular Volume 88.9 fL (78.0-98.0); Mean Platelet Volume 8.5 fL (7.4-10.4); Platelet Count 232 thou/uL (130-400); RBC Distribution Width 12.9 % (11.5-14.5); Red Blood Cell (RBC) Count 3.07 mill/uL (4.20-5.40); White Blood Cell (WBC) Count 11.8 thou/uL (4.8-10.8)
[2018-10-04] MEDS: Ferrous Sulfate 325 MG TAB PO SCH (08:14)
[2018-10-04] MEDS: Prenatal Vitamin 1 TAB PO SCH (08:58)
[2018-10-04] MEDS: levETIRAcetam 500 MG TAB PO SCH (08:58)
[2018-10-04] MEDS: Docusate Calcium (SURFAK) 240 MG CAP PO SCH (08:59)
[2018-10-04 09:06] VITALS: BP 99/62; TEMP 97.9
== END 2018-10-04 17:15 | disposition home or self-care (01) | DRG 806 ==
LOC: L&D/OP 19:38 → L&D 21:10 → 3SW 10-03 04:29
PROVIDERS: ADMIT Family Medicine; ATTEND Family Medicine
PROC: 10E0XZZ Delivery of Products of Conception, External Approach (ICD-10-PCS; principal; 2018-10-03)
DX: O60.14X0 Preterm labor third trimester with preterm delivery third trimester, not applicable or unspecified (principal); O99.354 Diseases of the nervous system complicating childbirth; Z37.0 Single live birth; Z3A.36 36 weeks gestation of pregnancy; G40.909 Epilepsy, unspecified, not intractable, without status epilepticus
CPT/HCPCS: 36415; 51702; 81001; 85027; 86780; 86850; 86900; 86901; 87340; 87389; 96360; 96361; 96372; 99285; G0378; J0290; J0456; J0595; J0702; J3490; J7050; S0020